=== PATIENT | male | born 1955 | race Two or more races ===

== ENCOUNTER 2018-03-11 16:58 | Inpatient (IN) | payer MEDICARE, OTHER ==
[~2018-03-11] VITALS: Ht 172.7 cm; Wt 78.0 kg
[2018-03-11 20:50] VITALS: BP 120/68
--- NOTE | 2018-03-11 20:50 | NUR ---
Admitted a 62 y/o male from [facility], on 5250 hold, based on hold patient has hx. of multiple inpatient hospitalization for psychotic d/o and presents with disorganized thinking, grandiose delusions. He is currently unable to state how he would obtain food or clothing. Patient also hides under the sheets of hospital bed and refused to speak with medical team. Patient admitting Dx. of psychosis and medical Dx. Rhabdomyolysis, blunt head trauma and AMS. Upon face to face evaluation, patient appeared alert and oriented x 3, anxious, disorganized, guarded, paranoid, with episodes of poor concentration and confusion, jumping from topic to topic, policies and procedure explained, cooperative on head to toe assessment and pictures, refused to sign paper works, patient has no sob, no acute distress, breathing even and unlabored, denies pain and discomfort, ambulatory with unsteady gait, belongings inspected for contraband checking, notified Dr. Sanderson of the admission. Kept clean, dry and comfortable. Will continue to monitor [id number] for safety
[2018-03-11] MEDS ORDERED: clonazePAM 0.5 MG TABLET PO PRN (21:30)
[2018-03-11] MEDS ORDERED: TEMAZEPAM 7.5 MG CAPSULE PO PRN (21:30)
[2018-03-11] MEDS ORDERED: MAGNESIUM HYDROXIDE 30 ML UDC PO PRN (21:30)
[2018-03-11] MEDS ORDERED: MAG HYDROX/AL HYDROX/SIMETH 30 ML UDC PO PRN (21:30)
[2018-03-11] MEDS ORDERED: ACETAMINOPHEN 325 MG TABLET PO PRN (21:30)
[2018-03-11] MEDS ORDERED: THEO400T (23:19)
[2018-03-11] MEDS ORDERED: NIFE60TA69 PO (23:19)
[2018-03-11] MEDS ORDERED: DIVA500T7 PO (23:19)
[2018-03-12 00:08] VITALS: BP 120/68
--- NOTE | 2018-03-12 06:10 | NUR ---
GPS RN NOTE: PATIENT NOTED WITH EPISODE OF SEIZURE LASTED 3 MINUTES, V/S RF=397/80 P=57 R=22 O2 SAT 96% ROOM AIR, SAFETY PRECAUTIONS OBSERVED, PATIENT ABLE TO CONVERSE AFTER. PATIENT HAD A HX. OF SEIZURE. NOTIFIED DR. DAMIAN AND ORDER TO CONTINUE DEPAKOTE 500MG PO BID NOTED AND CARRIED OUT. WILL CONTINUE TO MONITOR Addendum: 03/12/18 at 0658 by JOAO LORA II, RN ADDENDUM: RN FELLMONGERY WORKER AWARE
[2018-03-12 07:00] LABS: BASOPHILS # (AUTO) 0.1 /CMM (0.0-0.2); BASOPHILS % (AUTO) 0.9 % (0.0-2.0); EOSINOPHILS % (AUTO) 3.6 % (0.0-6.0); HEMATOCRIT 42 % (39-51); HEMOGLOBIN 14.2 g/dL (13.5-17.5); LYMPHOCYTES # (AUTO) 4.5 /CMM (0.8-4.8); LYMPHOCYTES % (AUTO) 38.2 % (20.0-44.0); MEAN CORPUSCULAR HEMOGLOBIN 35 PG (26.0-33.0); MEAN CORPUSCULAR HGB CONC 34 g/dl (31.0-36.0); MEAN CORPUSCULAR VOLUME 103 fL (80-96); MONOCYTES # (AUTO) 1.1 /CMM (0.1-1.30); MONOCYTES % (AUTO) 9.5 % (2.0-12.0); NEUTROPHILS # (AUTO) 5.6 /CMM (1.8-8.9); NEUTROPHILS % (AUTO) 47.8 % (43.0-81.0); PLATELET COUNT (AUTO) 242 /CMM (150-450); RDW COEFFICIENT OF VARIATION 13.3 (11.5-15.0); RED BLOOD CELL COUNT(AUTO) 4.09 MIL/uL (4.5-6.0); WHITE BLOOD COUNT (AUTO) 11.7 K/uL (4.3-11.0)
[2018-03-12 07:11] LABS: CHOLESTEROL 148 mg/dL (<200); HDL CHOLESTEROL 36 mg/dL (40-60); LDL 101 mg/dL (0-99); TRIGLYCERIDES 88 mg/dL (30-150)
[2018-03-12 07:18] LABS: ALBUMIN 3.4 g/dL (3.4-5.0); BILIRUBIN,TOTAL 0.7 mg/dL (0.2-1.0); CALCIUM, SERUM 8.9 mg/dL (8.5-10.1); CREATININE 0.9 mg/dL (0.6-1.3); POTASSIUM 4.3 mmol/L (3.5-5.1)
[2018-03-12 08:00] VITALS: BP 96/58
[2018-03-12] MEDS ORDERED: NICOTINE PATCH (21MG) 21 MG PATCH.TD24 TD SCH (09:00)
[2018-03-12 09:36] VITALS: BP 144/73
--- NOTE | 2018-03-12 09:43 | NUR ---
GPS/CHRISTIN JERONIMO PIPE CUTTER ASSESSED THE PT FOLLOWING SEIZURE EPISODE WITH RAPID RESPONSE. NEW ORDERS GIVEN AND CARRIED OUT.
--- NOTE | 2018-03-12 09:54 | NUR ---
DR. VALENZUELA NOTIFIED ABOUT THE PT. TO TRANSFER TO [facility] AND ORDERED TO D/C PT. TO [facility] AND TO CONTINUE ON 14 DAY HOLD.
--- NOTE | 2018-03-12 10:15 | NUR ---
GPS/RN PT TRANSFERRED TO [facility] REPORT GIVEN TO BELEM WALLER AT THE BED SIDE. PT IS A/O NO ACUTE DISTRESS NO SEIZURES. VSS. ORIGINAL HOLDS GIVEN TO CHARGE NURSE/REGIONAL TRUCK DRIVER.
[2018-03-12] MEDS ORDERED: DIVALPROEX SODIUM 125 MG CAP.SPRINK PO SCH (10:30)
[2018-03-12] MEDS ORDERED: NICOTINE PATCH (14MG) 14 MG PATCH.TD24 TD SCH (10:30)
== END 2018-03-12 10:15 | disposition short-term general hospital (02) | DRG 885 ==
LOC: GPS 20:36
PROVIDERS: ADMIT Psychiatry & Neurology Psychiatry; ATTEND Psychiatry & Neurology Psychiatry
DX: F39 Unspecified mood [affective] disorder (principal); F29 Unspecified psychosis not due to a substance or known physiological condition; Z73.6 Limitation of activities due to disability; F20.9 Schizophrenia, unspecified; G40.909 Epilepsy, unspecified, not intractable, without status epilepticus; F03.90 Unspecified dementia, unspecified severity, without behavioral disturbance, psychotic disturbance, mood disturbance, and anxiety; Z72.0 Tobacco use; Z91.81 History of falling
CPT/HCPCS: 36415; 80053-TC; 80061-TC; 80164-TC; 85025-TC; 87081-TC; Z7610

== ENCOUNTER 2018-03-12 10:53 | Inpatient (IN) | payer MEDICARE, OTHER ==
[~2018-03-12] VITALS: Ht 172.7 cm; Wt 78.0 kg
--- NOTE | 2018-03-12 10:23 | NUR ---
[facility] RN NOTES RECEIVED PT FROM [facility], AOX3, PER THERESA TIME RECORDER, ADMIT TO [facility] DX SEZURE. PT HAD 1 EPISODE OF SEIZURE AN HOUR AGO, ON RA, AO X 3, AMBULATORY, DENIES PAIN, ON TELEMONITOR HR SR HR 83, STARTED IV TO RT HAND G20, FLUSHES WELL, SITE CLEAR, REGULAR DIET, REFUSE PHOTO OF SKIN ISSUES AND TOTAL BODY CHECK. ON 5250 HOLD [EXP 03/25], SITTER AT BEDSIDE. UNIT ORIENTATION DONE AND USE OF CALL LIGHT, BED LOW LOCKED, FALL PRECAUTION, SEIZURE PRECAUTION, WILL CONT TO MONITOR.
[2018-03-12 10:30] VITALS: BP 106/62
[~2018-03-12 10:53] MED LIST: DIVA500T7 PO; NIFE60TA69 PO; THEO400T
[2018-03-12 12:00] VITALS: BP 100/62
[2018-03-12] MEDS ORDERED: MAG HYDROX/AL HYDROX/SIMETH 30 ML UDC PO PRN (12:00)
[2018-03-12] MEDS ORDERED: ACETAMINOPHEN 325 MG TABLET PO PRN (12:00)
[2018-03-12] MEDS ORDERED: ONDANSETRON HCL/PF 4 MG/2 ML VIAL IVP PRN (12:00)
[2018-03-12] MEDS ORDERED: Z GUARD REMEDY 2 OZ OINT TP PRN (12:00)
[2018-03-12] MEDS ORDERED: MAGNESIUM HYDROXIDE 30 ML UDC PO PRN (12:00)
[2018-03-12 12:08] LABS: BASOPHILS # (AUTO) 0.1 /CMM (0.0-0.2); BASOPHILS % (AUTO) 0.5 % (0.0-2.0); EOSINOPHILS % (AUTO) 0.5 % (0.0-6.0); HEMATOCRIT 40 % (39-51); HEMOGLOBIN 13.2 g/dL (13.5-17.5); LYMPHOCYTES # (AUTO) 1.3 /CMM (0.8-4.8); LYMPHOCYTES % (AUTO) 11.2 % (20.0-44.0); MEAN CORPUSCULAR HEMOGLOBIN 33 PG (26.0-33.0); MEAN CORPUSCULAR HGB CONC 33 g/dl (31.0-36.0); MEAN CORPUSCULAR VOLUME 101 fL (80-96); MONOCYTES # (AUTO) 0.8 /CMM (0.1-1.30); MONOCYTES % (AUTO) 6.4 % (2.0-12.0); NEUTROPHILS # (AUTO) 9.6 /CMM (1.8-8.9); NEUTROPHILS % (AUTO) 81.4 % (43.0-81.0); PLATELET COUNT (AUTO) 230 /CMM (150-450); RDW COEFFICIENT OF VARIATION 13.2 (11.5-15.0); RED BLOOD CELL COUNT(AUTO) 3.94 MIL/uL (4.5-6.0); WHITE BLOOD COUNT (AUTO) 11.9 K/uL (4.3-11.0)
[2018-03-12 12:25] LABS: ALBUMIN 3.3 g/dL (3.4-5.0); BILIRUBIN,TOTAL 0.4 mg/dL (0.2-1.0); CALCIUM, SERUM 9.2 mg/dL (8.5-10.1); CREATININE 0.7 mg/dL (0.6-1.3); PHOSPHORUS 3.1 mg/dL (2.5-4.9); POTASSIUM 4.6 mmol/L (3.5-5.1); TOTAL PROTEIN, SERUM 6.5 g/dL (6.4-8.2)
[2018-03-12 12:46] LABS: CREATINE KINASE MB 0.7 ng/mL (0-3.6); THYROID STIMULATING HORMONE 1.08 uIU/mL (0.358-3.74)
--- NOTE | 2018-03-12 12:49 | NUR ---
[facility] RN NOTES STARTED DEPACON IV.
[2018-03-12] MEDS ORDERED: VALPROATE 1,000 MG in IV NS 0.9% 100 ML IV ONE (13:00)
[2018-03-12 15:01] LABS: APPEARANCE,URINE CLEAR (CLEAR); BILIRUBIN,URINE NEGATIVE (NEGATIVE); BLOOD, URINE NEGATIVE Ery/uL (NEGATIVE); COLOR,URINE YELLOW (YELLOW); KETONES,URINE NEGATIVE (NEGATIVE); LEUKOCYTE ESTERASE ,URINE NEGATIVE (NEGATIVE); NITRITE, URINE NEGATIVE (NEGATIVE); PROTEIN,URINE NEGATIVE (NEGATIVE); UGLUCOSE NEGATIVE (NEGATIVE); UROBILINOGEN,URINE 0.2 EU/dL (0.2)
[2018-03-12 16:00] VITALS: BP 92/46
[2018-03-12] MEDS: DIVALPROEX SODIUM 500 MG TABLET.DR PO SCH (16:30)
--- NOTE | 2018-03-12 18:27 | NUR ---
DRAG OUT MAN CLOSING NOTES PT IN BED, RESTING COMFORTABLY, FROM GPS, AOX3, PER THERESA PENAL OFFICER, AMBULATORY, DENIES PAIN, ON TELEMONITOR HR SR HR 60, SRT HAND G20 IVHL, FLUSHES WELL, SITE CLEAR, REGULAR DIET, INDEPENDENT OF BED MOBILITY, ON 5250 HOLD [EXP 03/25], SITTER AT BEDSIDE. CALL LIGHT WITHIN REACH, BED LOW LOCKED, FALL PRECAUTION, SEIZURE PRECAUTION, ALL NEEDS MET AT THIS TIME. WILL ENDORSE TO NEXT SHIFT FOR COLEMAN.
--- NOTE | 2018-03-12 19:25 | NUR ---
VACUUM PLASTIC FORMING MACHINE OPERATOR NOTE PATIENT RECEIVED AOX3, RESTING COMFORTABLY IN BED WITH HOB ELEVATED, SITTER AT BEDSIDE, NO S/SX OF RESPIRATORY OR CARDIAC DISTRESS, SR ON TELE MONITOR, SKIN KEPT CLEAN AND DRY, R HAND #20G SL PATENT FLUSHING WELL SITE CDI, SEIZURE PRECAUTIONS MAINTAINED, SAFETY MAINTAINED AT ALL TIMES, CALL LIGHT WITHIN REACH, BED IN LOW, LOCKED POSITION, WILL CONT TO MONITOR FOR ANY CHANGES IN CONDITION.
[2018-03-12] MEDS: IV NS 0.9% 1,000 ML IV SCH (19:38)
[2018-03-12 20:00] VITALS: BP 101/60
--- NOTE | 2018-03-12 20:00 | NUR ---
COOK HELPER JUICE NOTE STAT VALPROIC ACID DRAWN BY LAB.
--- NOTE | 2018-03-12 22:50 | NUR ---
WORKERS COMPENSATION CLAIMS ADJUSTER NOTE PT PULLED OUT IV STATED HE THOUGHT HE COULD, WILL PLACE NEW ONE
[2018-03-13] VITALS: BP 114/59
--- NOTE | 2018-03-13 01:56 | NUR ---
ELECTRIC METER SETTER NOTE PT IS STRIKING OUT, VERBALLY ABUSIVE TOWARDS STAFF, ATTEMPTING TO GET OUT OF BED, TALKING TO SELF, REDIRECTED NEEDED, NEEDS CONSTANT REINFORCEMENT SITTER AT BEDSIDE.
--- NOTE | 2018-03-13 02:20 | NUR ---
MANAGER LABOR RELATIONS NOTE PT ATTEMPTING TO HIT SITTER, REGINA WATERS CALLED TO PLACE PATIENT BACK IN BED, CALL TO DR DAMIAN FOR FURTHER ORDERS, MILES SOFT WRIST RESTRAINTS IN PLACE FOR PT SAFETY AND ATIVAN 1MG PRN FOR SEIZURE ADDED.
[2018-03-13] MEDS ORDERED: LORAZEPAM INJ 2 MG/ML VIAL IV PRN (02:25)
[2018-03-13 04:00] VITALS: BP 101/62
[2018-03-13 07:40] LABS: BASOPHILS % (AUTO) 0.4 % (0.0-2.0); EOSINOPHILS % (AUTO) 1.5 % (0.0-6.0); HEMATOCRIT 38 % (39-51); HEMOGLOBIN 12.8 g/dL (13.5-17.5); LYMPHOCYTES # (AUTO) 2.1 /CMM (0.8-4.8); LYMPHOCYTES % (AUTO) 24.5 % (20.0-44.0); MEAN CORPUSCULAR HEMOGLOBIN 34 PG (26.0-33.0); MEAN CORPUSCULAR HGB CONC 34 g/dl (31.0-36.0); MEAN CORPUSCULAR VOLUME 102 fL (80-96); MONOCYTES # (AUTO) 0.9 /CMM (0.1-1.30); MONOCYTES % (AUTO) 10.2 % (2.0-12.0); NEUTROPHILS # (AUTO) 5.5 /CMM (1.8-8.9); NEUTROPHILS % (AUTO) 63.4 % (43.0-81.0); PLATELET COUNT (AUTO) 226 /CMM (150-450); RDW COEFFICIENT OF VARIATION 13.2 (11.5-15.0); RED BLOOD CELL COUNT(AUTO) 3.73 MIL/uL (4.5-6.0); WHITE BLOOD COUNT (AUTO) 8.7 K/uL (4.3-11.0)
--- NOTE | 2018-03-13 07:43 | NUR ---
BAT CARRIER OPENING NOTES RECEIVED PT SITTING UPRIGHT IN BED, RESTING COMFORTABLY. PT IS A/O X2. RESPIRATIONS ARE EVEN AND UNLABORED, NOT IN ANY ACUTE DISTRESS NOTED. NO FACIAL GRIMACING OR MOANING NOTED. IV ACCESS INTACT, NO INFILTRATION NOTED, DRESSING KEPT CLEAN AND DRY. BILATERAL WIRST RESTRAINS NOTED SECURE. WILL REPOSITION PER PROTOCOL. SAFETY MEASURES ARE IN PLACE. WILL CONTINUE TO MONITOR THROUGHOUT SHIFT.
[2018-03-13 07:54] LABS: CALCIUM, SERUM 8.9 mg/dL (8.5-10.1); CREATININE 0.6 mg/dL (0.6-1.3); MAGNESIUM 2.2 mg/dL (1.8-2.4); PHOSPHORUS 3.4 mg/dL (2.5-4.9); POTASSIUM 4.4 mmol/L (3.5-5.1)
[2018-03-13 08:00] VITALS: BP 114/60
[2018-03-13] MEDS: IV NS 0.9% 1,000 ML IV SCH ×2 (08:49→22:56)
[2018-03-13] MEDS: DIVALPROEX SODIUM 500 MG TABLET.DR PO SCH ×2 (08:49→16:06)
[2018-03-13] MEDS: NIFEdipine XL 60 MG TAB PO SCH (08:50)
[2018-03-13] MEDS: NICOTINE PATCH (14MG) 14 MG PATCH.TD24 TD SCH (08:50)
[2018-03-13 12:00] VITALS: BP 115/75
--- NOTE | 2018-03-13 13:31 | NUR ---
LUMBER MARKER NOTES PT IS NOT IN ANY APPARENT DISTRESS AT THIS TIME. PT REMAINS COOPERATIVE. WRIST RESTRAINTS ARE REMOVED ONE AT A TIME FOR GOOD CIRCULATION AND REFRAIN FROM ANY SKIN ISSUES. SITTER AT BEDSIDE. WILL CONTINUE TO MONITOR THROUGHOUT SHIFT.
[2018-03-13] MEDS ORDERED: VALPROATE 750 MG in IV NS 0.9% 100 ML IV STA (17:07)
--- NOTE | 2018-03-13 18:30 | NUR ---
IDENTIFICATION AND RECORDS COMMANDER CLOSING NOTES ALL DUE MEDS GIVEN, NEEDS MET AND RENDERED. PT A/O X2-3, AFEBRILE. RESPIRATIONS ARE EVEN AND UNLABORED, NOT IN ANY ACUTE DISTRESS NOTED. IV SITE IS INTACT, NO INFILTRATION NOTED. IV FLUIDS RUNNING AND TOLERATING WELL. PT REMAINS COOPERATIVE AND FOLLOWS SIMPLE INSTRUCTIONS. RESTRAINTS HAVE BEEN REMOVED ONE HAND AT A TIME. NO SKIN ISSUES NOTED. SAFETY MEASURES ARE IN PLACE. SITTER AT BEDSIDE FOR MONITORING. WILL ENDORSE TO NEXT SHIFT FOR CONTINUITY OF CARE.
[2018-03-13 20:00] VITALS: BP_SYST 101; BP_SYST 95; BP_DIAS 48; BP_DIAS 50
--- NOTE | 2018-03-13 20:03 | NUR ---
WARRANT CLERK INITIAL NOTES RECEIVED PT IN BED, RESTING COMFORTABLY. PT IS A/O X2. RESPIRATIONS ARE EVEN AND UNLABORED, DENIES SOB. NO FACIAL GRIMACING OR MOANING NOTED. IV ACCESS INTACT, NO INFILTRATION NOTED, DRESSING KEPT CLEAN AND DRY. RM ASSIGNED TO 1:1 SITTER, NO RESTRAINS APPLIED AT THIS TIME. SAFETY MEASURES ARE IN PLACE. WILL CONTINUE TO MONITOR THROUGHOUT SHIFT.
[2018-03-13] MEDS: OLANZAPINE 5 MG/TAB.RAPDIS PO SCH (21:09)
[2018-03-14 00:06] VITALS: BP 106/70
[2018-03-14 04:00] VITALS: BP 104/66
--- NOTE | 2018-03-14 06:26 | NUR ---
MICA MINER BLASTING CLOSING NOTES ENDORSED PT IN BED, RESTING COMFORTABLY. PT IS A/O X2. RESPIRATIONS ARE EVEN AND UNLABORED, DENIES SOB. NO FACIAL GRIMACING OR MOANING NOTED. IV ACCESS INTACT, NO INFILTRATION NOTED, DRESSING KEPT CLEAN AND DRY. RM ASSIGNED TO 1:1 SITTER, RESTRAINS DC AT THIS TIME. SAFETY MEASURES ARE IN PLACE. WILL CONTINUE TO MONITOR THROUGHOUT SHIFT.
--- NOTE | 2018-03-14 07:30 | NUR ---
VP CUSTOMER DEVELOPMENT INITIAL NOTES: RECEIVED PT IN BED SLEEPING, EASY TO AROUSE. ON ROOM AIR, SATURATING WELL. NO RESPIRATORY DISTRESS NOTED AT THIS TIME. ON TELE MONITOR SR HR 66. 1:1 SITTER IN ROOM ORDERED FOR PT SAFETY. IV TO LFA #20GAUGE WITH IV FLUIDS RUNNING AT 75ML/HR ORDERED. BED IN LOW LOCKED POSITION, CALL LIGHT WITHIN REACH. PLAN OF CARE DISCUSSED WITH PT. WILL CONTINUE TO MONITOR.
[2018-03-14 08:00] VITALS: BP 97/63
[2018-03-14] MEDS: DIVALPROEX SODIUM 250 MG TABLET.DR PO SCH ×2 (08:44→16:29)
[2018-03-14] MEDS: NICOTINE PATCH (14MG) 14 MG PATCH.TD24 TD SCH (08:46)
[2018-03-14] MEDS: NIFEdipine XL 60 MG TAB PO SCH (09:00)
--- NOTE | 2018-03-14 09:00 | NUR ---
NEUROLOGIST AT BEDSIDE TO ASSESS PT.
--- NOTE | 2018-03-14 09:15 | NUR ---
BP 97/63, HR 66. PER THERESA WADE NP, HOLD PROCARDIA DOSE.
--- NOTE | 2018-03-14 10:30 | NUR ---
WOUND CARE NURSE AT BEDSIDE TO ASSESS PT. NOTED WITH CALLUSES TO BILAT PLANTAR FEET. NO TREATMENT TO BE DONE. PICTURES TAKEN AND PLACED IN CHART.
[2018-03-14] MEDS: IV NS 0.9% 1,000 ML IV SCH (11:40)
--- NOTE | 2018-03-14 11:59 | NUR ---
PATIENT REQUESTING TO SHOWER. PER THERESA ALARCON, OK TO SHOWER WITH ASSISTANCE
[2018-03-14 12:00] VITALS: BP 99/65
--- NOTE | 2018-03-14 12:00 | NUR ---
WOUND CARE CONSULT: PT SEEN FOR SKIN ASSESSMENT AND NOTED TO HAVE CALLUSES TO BILATERAL PLANTAR FEET. PT STATES THAT HE WALKED A LOT PRIOR TO ADMISSION. NO DRAINAGE NOTED. PT ALSO NOTED TO HAVE DRY HEALED AREA TO RT SIDE OF HEAD. PT INDEPENDENT WITH BED MOBILITY AND CONTINENT AT THIS TIME. WILL SEE PRN.
--- NOTE | 2018-03-14 13:50 | NUR ---
PT TOOK SHOWER WITH ASSISTANCE. SAFELY TAKEN BACK TO BED. PT NOW REFUSING TO HAVE IV FLUIDS CONNECTED WELL TELE MONITOR ON. THERESA ALARCON NOTIFIED
--- NOTE | 2018-03-14 16:32 | NUR ---
VS: PT REFUSING 1600 GEOFFREY SIGNS Addendum: 03/14/18 at 1633 by TRISTAN KOROMA RN Amended: Links added.
--- NOTE | 2018-03-14 18:45 | NUR ---
DEVULCANIZER HEAD END NOTES: PT REMAINS IN BED, AWAKE A&O X2. 1:1 SITTER IN ROOM ORDERED. PT NON COMBATIVE THIS SHIFT, BUT NON-COMPLIANT WITH ALL TREATMENTS. INFORMATION SECURITY ARCHITECT THERESA MADE AWARE. BED IN LOW LOCKED POSITION, CALL LIGHT WITHIN REACH. WILL ENDORSE TO PM SHIFT FOR CONTINUITY OF CARE.
--- NOTE | 2018-03-14 18:50 | NUR ---
DISCHARGE: PT DISCHARGED FROM MED/SURG AND WILL BE ADMITTED UNDER [facility]. WILL REMAIN IN THE SAME ROOM WITH 1:1 SITTER AT BEDSIDE. PT DENIES ANY PAIN OR DISCOMFORT AT THIS TIME. DISCHARGE EDUCATION GIVEN TO PATIENT. PT NOT ABLE TO FULLY COMPREHEND TREATMENT PLAN, BUT STATES HE HAS NO FURTHER QUESTIONS. Addendum: 03/14/18 at 1908 by TRISTAN KOROMA RN WILL ENDORSE TO PM SHIFT FOR ADMITTING PT TO GPS.
--- NOTE | 2018-03-14 19:30 | NUR ---
MS RN NOTE PT RECEIVED AWAKE AND ALERT WITH SITTER AT BEDSIDE. NO ACUTE DISTRESS NOTED. PT REFUSING IV FLUIDS. CALL LIGHT WITHIN REACH. ABLE TO AMBULATE TO THE RESTROOM WITH STEADY GAIT. CLOSE TO NURSING STATION. WILL MONITOR CLOSELY.
[2018-03-14 20:00] VITALS: BP 122/77
[2018-03-14] MEDS: OLANZAPINE 5 MG/TAB.RAPDIS PO SCH (21:21)
--- NOTE | 2018-03-15 07:45 | NUR ---
INITIAL MED SURG NOTE PATIENT A/O X2 PATIENT CALM AND COOPERATIVE. RESTING COMFORTABLY ALL SAFETY PRECAUTIONS IN PLACE SITTER AT BED SIDE WILL CONTINUE TO MONITOR CLOSELY. LFA #20 PATENT AND INTACT.
[2018-03-15 08:00] VITALS: BP 97/42
[2018-03-15] MEDS: NICOTINE PATCH (14MG) 14 MG PATCH.TD24 TD SCH ×2 (08:19→09:00)
[2018-03-15] MEDS: NIFEdipine XL 60 MG TAB PO SCH (08:20)
[2018-03-15] MEDS: DIVALPROEX SODIUM 250 MG TABLET.DR PO SCH ×2 (08:25→09:56)
--- NOTE | 2018-03-15 08:30 | NUR ---
CEO NOTE PATIENT REFUSING DEPAKOTE 750 MG AND NICODERM PATCH. PATIENT STATED MA'AM I DON'T TAKE THAT MEDICATION ASK MY NEIGHBOR. i EXPLAINED IT WAS FOR SEIZURES AND HE STATED I DON'T HAVE SEIZURES. WILL ATTEMPT LATER.
[2018-03-15] MEDS ORDERED: IV NS 0.9% 1,000 ML IV PRN (09:35)
--- NOTE | 2018-03-15 09:50 | NUR ---
ELECTRICAL SUPERINTENDENT NOTE PATIENT REFUSING IV NS @ 75 ML/HR. ATTEMPTED TO PLACE NICODERM PATCH PATIENT REFUSED RETURNED MEDICATION TO MEDICATION RETURN BIN.
[2018-03-15 12:00] VITALS: BP 89/49
[2018-03-15] MEDS ORDERED: DIVA250T4 PO (12:41)
[2018-03-15] MEDS ORDERED: OLAN5TAB6 PO ×2 (12:41→14:42)
[2018-03-15] MEDS ORDERED: ACET-868 PO (14:42)
[2018-03-15] MEDS ORDERED: DIVA500T7 PO (14:42)
[2018-03-15] MEDS ORDERED: NICO-676 TD (14:42)
[2018-03-15] MEDS ORDERED: MAGN400O6 PO (14:42)
[2018-03-15] MEDS ORDERED: ONDA4VIA30 IVP (14:42)
[2018-03-15] MEDS ORDERED: MAG30ORA PO (14:42)
[2018-03-15] MEDS ORDERED: LORA2VIA6 IV (14:42)
== END 2018-03-15 13:41 | DRG 101 ==
LOC: TELE1 10:53 → TELE-TD 11:02 → TELE1 13:09 → MEDSG1 03-14 20:59 → UNDODISIN 03-15 12:56
PROVIDERS: ADMIT Registered Nurse; ATTEND Registered Nurse
DX: G40.909 Epilepsy, unspecified, not intractable, without status epilepticus (principal); F20.0 Paranoid schizophrenia; E87.1 Hypo-osmolality and hyponatremia; F03.90 Unspecified dementia, unspecified severity, without behavioral disturbance, psychotic disturbance, mood disturbance, and anxiety; F39 Unspecified mood [affective] disorder; T42.6X5A Adverse effect of other antiepileptic and sedative-hypnotic drugs, initial encounter; Y92.009 Unspecified place in unspecified non-institutional (private) residence as the place of occurrence of the external cause; Z73.6 Limitation of activities due to disability; F29 Unspecified psychosis not due to a substance or known physiological condition; Z87.828 Personal history of other (healed) physical injury and trauma; Z72.0 Tobacco use; I10 Essential (primary) hypertension
CPT/HCPCS: 36415; 71045-TC; 80048-TC; 80053-TC; 80061-TC; 80164-TC; 81000-TC; 82553-TC; 83735-TC; 84100-TC; 84443-TC; 85025-TC; J2060; J3490; J7030

== ENCOUNTER 2018-03-15 12:47 | Inpatient (IN) | payer MEDICARE, OTHER ==
[~2018-03-15] VITALS: Ht 172.7 cm; Wt 68.5 kg
[~2018-03-15 12:47] MED LIST changes: +DIVA-78 PO; +DIVA250T4 PO; -DIVA500T7 PO; +OLAN5TAB6 PO
[2018-03-15] MEDS ORDERED: ONDA4VIA30 IVP (14:42)
[2018-03-15] MEDS ORDERED: DIVA-78 PO (14:42)
[2018-03-15] MEDS ORDERED: MAG30ORA PO (14:42)
[2018-03-15] MEDS ORDERED: LORA2VIA6 IV (14:42)
[2018-03-15] MEDS ORDERED: MAGN400O6 PO (14:42)
[2018-03-15] MEDS ORDERED: OLAN5TAB6 PO (14:42)
[2018-03-15] MEDS ORDERED: NICO-676 TD (14:42)
[2018-03-15] MEDS ORDERED: ACET-868 PO (14:42)
[2018-03-15] MEDS ORDERED: MAGNESIUM HYDROXIDE 30 ML UDC PO PRN ×2 (15:30)
[2018-03-15] MEDS ORDERED: clonazePAM 0.5 MG TABLET PO PRN (15:30)
[2018-03-15] MEDS ORDERED: LORAZEPAM INJ 2 MG/ML VIAL IV PRN (15:30)
[2018-03-15] MEDS ORDERED: ONDANSETRON HCL/PF 4 MG/2 ML VIAL IVP PRN (15:30)
[2018-03-15] MEDS ORDERED: ACETAMINOPHEN 325 MG TABLET PO PRN ×2 (15:30)
[2018-03-15] MEDS ORDERED: MAG HYDROX/AL HYDROX/SIMETH 30 ML UDC PO PRN ×2 (15:30)
--- NOTE | 2018-03-15 15:41 | NUR ---
INITIAL [facility] OVERFLOW NOTE ADMITTED 62 YEAR OLD MALE ON 5250 HOLD FOR GD. PER 5250 SUMMARY RR. HURLEY HAS A HISTORY OF MULTIPLE INPATIENT HOSPITALIZATIONS FOR PSYCHOTIC DISORDER AND PRESENTS WITH DISORGANIZED THINKING AND GRANDIOSE DELUSIONS. HE IS CURRENTLY UNABLE TO STATE HOW HE OBTAIN FOOD OR CLOTHING STATING " THAT'S ONE STEP AHEAD OF ME." HE IS ALSO UNABLE TO ENGAGE IN MEDICAL CARE; HE HIDES UNDER THE SHEETS OF HOSPITAL BED AND REFUSES TO SPEAK WITH MEDICAL TEAM. ON 1:1 PATIENT IS ALERT X2 EASILY AGITATED FLAT AFFECT, DEPRESSED . MEDICAL DIAGNOSES SEIZURE, ACUTE PSYCHOSIS, HTN, DEMENTIA, SMOKER, MOOD DISORDER, AND GRAVE DISABILITY 5250. DR. VALENZUELA/ AMADO MARQUEZ N.P. NOTIFIED OF ADMISSION. PATIENT'S RIGHT HANDBOOK GIVEN AND EXPLAINED. PATIENT UNABLE TO VERBALIZE UNDERSTANDING. PATIENT HAS SITTER AT BEDSIDE AND WILL BEGIN Q15 SAFETY CHECKS.
--- NOTE | 2018-03-15 16:21 | NUR ---
GPS OVERFLOW RN NOTE PATIENT REFUSED TO SIGN ADMISSION PAPERWORK. PATIENT REFUSED TO TAKE CURRENT PICTURES TO UPDATE HIS CHART. PATIENT TRANSFERRED TO [facility] OVERFLOW AND WILL STAY IN SAME ROOM PATIENT WAS IN PREVIOUSLY. 115-1. SITTER AT BEDSIDE. WILL CONTINUE TO MONITOR CLOSELY.
[2018-03-15] MEDS: DIVALPROEX SODIUM 500 MG TABLET.DR PO SCH (16:41)
--- NOTE | 2018-03-15 18:27 | NUR ---
NICOLASA OVERFLOW RN NOTE REMOVED IV DUE TO PATIENT STATING IT'S PAINFUL. REFUSED NEW INSERTION. PATIENT EASILY AGITATED. CHARGE NURSE MIRNA NOTIFIED.
--- NOTE | 2018-03-15 19:16 | NUR ---
GPS OVERFLOW RN CLOSING NOTE REPORT GIVEN TO ALBINA WALLER. PATIENT CLOSELY MONITORED EASILY AGITATED THROUGHOUT SHIFT. PATIENT REFUSED IV INSERTION AMADO Hidalgo.Renata NOTIFIED. PATIENT CLEAN AND DRY RESTING COMFORTABLY IN BED. SITTER AT BEDSIDE. ALL ORDERS CARRIED OUT.
--- NOTE | 2018-03-15 19:20 | NUR ---
GPS OVERFLOW RN NOTE RECEIVED PT AOX2 SPEECH CLEAR, AGITATED, SITTER AT BEDSIDE, GUARDED, VERBALLY ABUSIVE ON INTRODUCTION, NO S/SX OF CARDIAC OR RESPIRATORY DISTRESS, ON ROOM AIR, SKIN KEPT CLEAN AND DRY. SAFETY MAINTAINED AT ALL TIMES, BED IN LOCKED, LOW POSITION, CALL LIGHT WITHIN REACH, WILL CONTINUE TO MONITOR FOR ANY CHANGES IN CONDITION.
[2018-03-15 21:00] VITALS: BP 110/65
--- NOTE | 2018-03-16 07:30 | NUR ---
GPS OVERFLOW RN OPENING NOTE RECEIVED PT AOX2 SPEECH CLEAR, AGITATED, SITTER AT BEDSIDE, GUARDED, NO S/SX OF CARDIAC OR RESPIRATORY DISTRESS, ON ROOM AIR, SAFETY MAINTAINED, BED IN LOCKED, LOW POSITION, CALL LIGHT WITHIN REACH, WILL CONTINUE TO MONITOR FOR ANY CHANGES IN CONDITION.
[2018-03-16] MEDS: NIFEdipine XL 60 MG TAB PO SCH ×2 (08:48→09:45)
[2018-03-16 09:00] VITALS: BP 117/69
[2018-03-16] MEDS ORDERED: NICOTINE PATCH (14MG) 14 MG PATCH.TD24 TD SCH (09:00)
[2018-03-16] MEDS: NICOTINE PATCH (14MG) 14 MG PATCH.TD24 TD SCH ×2 (09:00→09:45)
[2018-03-16] MEDS: DIVALPROEX SODIUM 500 MG TABLET.DR PO SCH ×2 (09:45→17:57)
--- NOTE | 2018-03-16 11:20 | NUR ---
RN NOTES SEEN BY WITH NO NEW ORDERERS.RECREATIONAL THERAPY DONE TOLD THAT PATIENT IS NOT FOCUSING .MAY NOT BE CONTINUE FURTHER.
[2018-03-16 11:44] LABS: ALBUMIN 3.3 g/dL (3.4-5.0); BILIRUBIN,TOTAL 0.3 mg/dL (0.2-1.0); CALCIUM, SERUM 8.9 mg/dL (8.5-10.1); CREATININE 0.8 mg/dL (0.6-1.3); POTASSIUM 4.6 mmol/L (3.5-5.1); TOTAL PROTEIN, SERUM 6.7 g/dL (6.4-8.2)
[2018-03-16 11:49] LABS: CHOLESTEROL 132 mg/dL (<200); HDL CHOLESTEROL 29 mg/dL (40-60); LDL 87 mg/dL (0-99); TRIGLYCERIDES 72 mg/dL (30-150)
--- NOTE | 2018-03-16 15:39 | NUR ---
INITIAL DISCHARGE PLAN: Patient may need placement, pt provided SW with a home address different than the address on his facesheet. Per pt, he does not have any family. SW will help form a safe and proper discharge in collaboration with MD.
--- NOTE | 2018-03-16 18:00 | NUR ---
RN NOTES PATIENT REFUSED MRSA SWAB .REQUESTED MORE THAN THREE TIMES.BUT REFUSED.
--- NOTE | 2018-03-16 19:25 | NUR ---
GPS OVERFLOW RN NOTE RECEIVED PT AOX2 SPEECH CLEAR, AGITATED, SITTER AT BEDSIDE, GUARDED, NO S/SX OF CARDIAC OR RESPIRATORY DISTRESS, ON ROOM AIR, SKIN KEPT CLEAN AND DRY. NO IV IN PLACE, PT REFUSED. SAFETY MAINTAINED AT ALL TIMES, BED IN LOCKED, LOW POSITION, CALL LIGHT WITHIN REACH, WILL CONTINUE TO MONITOR FOR ANY CHANGES IN CONDITION.
--- NOTE | 2018-03-16 19:30 | NUR ---
GPS OVERFLOW RN SHIFT END NOTE PT AOX2 SPEECH CLEAR, SITTER AT BEDSIDE, GUARDED, NO S/SX OF CARDIAC OR RESPIRATORY DISTRESS, ON ROOM AIR, SAFETY MAINTAINED, BED IN LOCKED, LOW POSITION, CALL LIGHT WITHIN REACH,ENDORSED TO PM NURSE FOR COLEMAN.
--- NOTE | 2018-03-16 20:00 | NUR ---
RN GPS OVERFLOW NOTE PT REFUSED VITAL SIGNS STATING TO HAND WEAVER " I WILL KILL YOU IF YOU TOUCH ME."
[2018-03-16] MEDS: OLANZAPINE 5 MG/TAB.RAPDIS PO SCH (22:00)
--- NOTE | 2018-03-17 07:30 | NUR ---
GPS OVERFLOW RN AM NOTE RECEIVED PT AOX2 SPEECH CLEAR, SITTER AT BEDSIDE, GUARDED, ON 5250, [EXP 03/25],NO S/SX OF CARDIAC OR RESPIRATORY DISTRESS, ON ROOM AIR, SKIN KEPT CLEAN AND DRY. NO IV IN PLACE, PT REFUSED. SAFETY MAINTAINED AT ALL TIMES, BED IN LOCKED, LOW POSITION, CALL LIGHT WITHIN REACH, WILL CONTINUE TO MONITOR FOR ANY CHANGES IN CONDITION.
[2018-03-17 08:00] VITALS: BP 91/50
[2018-03-17 09:00] VITALS: BP 91/50
[2018-03-17] MEDS: DIVALPROEX SODIUM 500 MG TABLET.DR PO SCH ×2 (09:30→17:40)
--- NOTE | 2018-03-17 09:30 | NUR ---
GPS RN NOTES DUE MEDS GIVEN.
--- NOTE | 2018-03-17 10:41 | NUR ---
GPS NOTES PATIENT TRANSFERRED TO [facility] RM 212-2. REPORT GIVEN TO JESSICA WALLER
[2018-03-17 16:00] VITALS: BP 90/56
--- NOTE | 2018-03-17 17:40 | NUR ---
RN NOTE: PATIENT WRIST BAND DOES NOT SCAN. MANUALLY INPUT MEDS
[2018-03-17] MEDS: OLANZAPINE 5 MG/TAB.RAPDIS PO SCH (22:00)
--- NOTE | 2018-03-17 22:25 | NUR ---
pt refused zyprexa 5mg po. offer 3x. explain the risk and benefits of not taking his medications. pt still refused. will endorse to next shift nurse for krys.
[2018-03-18 08:00] VITALS: BP 102/63
[2018-03-18] MEDS: NIFEdipine XL (30MG) 30 MG TAB PO SCH (09:00)
[2018-03-18] MEDS: NICOTINE PATCH (14MG) 14 MG PATCH.TD24 TD SCH (09:00)
[2018-03-18] MEDS: DIVALPROEX SODIUM 500 MG TABLET.DR PO SCH ×2 (09:05→17:46)
--- NOTE | 2018-03-18 15:02 | NUR ---
DOUG faxed SNF referral to CJ director of epidemiology at [facility] Address: [address] [place] [address] for review.
--- NOTE | 2018-03-18 15:03 | NUR ---
SW received phone call from CJ relations director at [facility] Address: [address] [place] [address] stating pt had been accepted to facility pending behavioral report at discharge.
[2018-03-18 16:07] VITALS: BP 123/59
[2018-03-18 20:00] VITALS: BP 107/67
[2018-03-18] MEDS: TEMAZEPAM 7.5 MG CAPSULE PO PRN (22:41)
[2018-03-18] MEDS: OLANZAPINE 5 MG/TAB.RAPDIS PO SCH (22:41)
[2018-03-19 08:00] VITALS: BP 103/53
[2018-03-19] MEDS: DIVALPROEX SODIUM 500 MG TABLET.DR PO SCH ×2 (08:03→16:46)
[2018-03-19] MEDS: NIFEdipine XL (30MG) 30 MG TAB PO SCH (08:52)
[2018-03-19] MEDS: NICOTINE PATCH (14MG) 14 MG PATCH.TD24 TD SCH (08:53)
[2018-03-19 16:34] VITALS: BP 99/54
[2018-03-19 20:00] VITALS: BP 130/64
[2018-03-19] MEDS: OLANZAPINE 5 MG/TAB.RAPDIS PO SCH (22:41)
[2018-03-19] MEDS: TEMAZEPAM 7.5 MG CAPSULE PO PRN (22:43)
[2018-03-20 08:00] VITALS: BP 102/59
[2018-03-20] MEDS: DIVALPROEX SODIUM 500 MG TABLET.DR PO SCH ×2 (08:31→16:10)
[2018-03-20] MEDS: NICOTINE PATCH (14MG) 14 MG PATCH.TD24 TD SCH (08:35)
[2018-03-20] MEDS: NIFEdipine XL (30MG) 30 MG TAB PO SCH (08:35)
[2018-03-20 16:00] VITALS: BP 110/55
[2018-03-20 20:04] VITALS: BP 96/56
[2018-03-20] MEDS: OLANZAPINE 5 MG/TAB.RAPDIS PO SCH (21:09)
[2018-03-20 23:00] VITALS: BP 108/68
[2018-03-20] MEDS: TEMAZEPAM 7.5 MG CAPSULE PO PRN (23:04)
[2018-03-21 08:39] VITALS: BP 117/71
[2018-03-21] MEDS: NIFEdipine XL (30MG) 30 MG TAB PO SCH ×2 (09:00→09:58)
[2018-03-21] MEDS: DIVALPROEX SODIUM 500 MG TABLET.DR PO SCH ×2 (09:00→17:22)
[2018-03-21] MEDS: NICOTINE PATCH (14MG) 14 MG PATCH.TD24 TD SCH (09:00)
[2018-03-21 16:00] VITALS: BP 103/61
[2018-03-21 19:47] VITALS: BP 112/71
[2018-03-21] MEDS: OLANZAPINE 5 MG/TAB.RAPDIS PO SCH (21:36)
[2018-03-21] MEDS: TEMAZEPAM 7.5 MG CAPSULE PO PRN (21:36)
[2018-03-22 08:00] VITALS: BP 124/78
[2018-03-22] MEDS: NIFEdipine XL (30MG) 30 MG TAB PO SCH (09:00)
[2018-03-22] MEDS: NICOTINE PATCH (14MG) 14 MG PATCH.TD24 TD SCH (09:02)
[2018-03-22] MEDS: DIVALPROEX SODIUM 500 MG TABLET.DR PO SCH ×2 (09:03→16:21)
[2018-03-22 16:10] VITALS: BP 120/79
[2018-03-22 20:36] VITALS: BP 98/69
[2018-03-22] MEDS: OLANZAPINE 5 MG/TAB.RAPDIS PO SCH (21:36)
[2018-03-22] MEDS: TEMAZEPAM 7.5 MG CAPSULE PO PRN (21:38)
[2018-03-23 08:00] VITALS: BP 106/68
[2018-03-23 09:00] VITALS: BP 106/68
[2018-03-23] MEDS: NIFEdipine XL (30MG) 30 MG TAB PO SCH (09:00)
[2018-03-23] MEDS: NICOTINE PATCH (14MG) 14 MG PATCH.TD24 TD SCH (09:01)
[2018-03-23] MEDS: DIVALPROEX SODIUM 500 MG TABLET.DR PO SCH (09:01)
--- NOTE | 2018-03-23 13:45 | NUR ---
pt. anxious to leave and a little upset he could not have a cigarette at noon,states someone promised him.offered pt. a klonopin and he refused.signed all dc papers,dc photos taken.denies suicide ideation and homicidal ideation, report to albina at transferring facility as well as drivers.belonging sheet signed,taken to facility via ambulance.
--- NOTE | 2018-03-23 13:59 | NUR ---
DISCHARGE NOTE: Pt was discharged at 2:00pm via [facility] trip # [id number] to [facility] Address: [address] [place] [address] . Pt has no family to notify. Pt was in an anxious mood with congruent affect as he was eager to smoke. Pt denied suicidal/homicidal ideations and denied visual/auditory hallucinations. For smoking cessation, patient will be referred to the [employer] [facility] or [facility] [id number]. Pt will be under the care of Psychiatrist: Dr. Sanderson [address] [facility] [address] [address] and Guidance Counselor: Dr Varma Address: [address] [address] [phone]. The multidisciplinary exitcare form was done, printed, signed, and given to the patient.
== END 2018-03-23 13:45 | DRG 885 ==
LOC: GPSOV1 12:47 → GPS 03-17 10:38
PROVIDERS: ADMIT Psychiatry & Neurology Psychiatry; ATTEND Psychiatry & Neurology Psychiatry
DX: F29 Unspecified psychosis not due to a substance or known physiological condition (principal); F32.9 Major depressive disorder, single episode, unspecified; F41.9 Anxiety disorder, unspecified; F43.9 Reaction to severe stress, unspecified; Z73.6 Limitation of activities due to disability; G40.909 Epilepsy, unspecified, not intractable, without status epilepticus; F39 Unspecified mood [affective] disorder; I10 Essential (primary) hypertension; Z87.39 Personal history of other diseases of the musculoskeletal system and connective tissue; Z91.81 History of falling; Z86.59 Personal history of other mental and behavioral disorders; F03.90 Unspecified dementia, unspecified severity, without behavioral disturbance, psychotic disturbance, mood disturbance, and anxiety; Z72.0 Tobacco use
CPT/HCPCS: 36415; 80053-TC; 80061-TC; Z7610